=== PATIENT | male | born 1960 | race Caucasian/White ===

== ENCOUNTER 2018-06-12 06:25 | Day surgery (SDC) | payer BC ==
[2018-06-12] MEDS ORDERED: LIDOCAINE 4% SOLUTION 50 ML BTL (08:35)
[2018-06-12] MEDS ORDERED: FENTAnyl 50 MCG/ML VIAL (10:13)
[2018-06-12] MEDS ORDERED: MIDAZOLAM 1 MG/ML 2 ML INJ ×2 (10:13)
== END 2018-06-12 11:51 | disposition home or self-care (01) ==
LOC: GIL 06:25
DX: Z12.11 Encounter for screening for malignant neoplasm of colon (principal); K29.50 Unspecified chronic gastritis without bleeding; D12.4 Benign neoplasm of descending colon; K64.4 Residual hemorrhoidal skin tags; K57.30 Diverticulosis of large intestine without perforation or abscess without bleeding; K25.3 Acute gastric ulcer without hemorrhage or perforation; K29.80 Duodenitis without bleeding; K20.8 Other esophagitis
CPT/HCPCS: 43239; 88305; 88312